=== PATIENT | male | born 2000 | race Caucasian/White ===

== ENCOUNTER 2019-04-02 00:09 | Emergency (ER) | payer MEDICAID ==
[~2019-04-02] VITALS: Ht 182.9 cm; Wt 82.0 kg
[2019-04-02 00:23] VITALS: BP 113/61
== END 2019-04-02 05:07 | disposition home or self-care (01) ==
LOC: ER 00:09
DX: Z00.00 Encounter for general adult medical examination without abnormal findings (principal)
CPT/HCPCS: 99283